=== PATIENT | female | born 1975 | race Caucasian/White ===

== ENCOUNTER 2018-10-10 17:30 | Emergency (ER) | payer MEDICARE, OTHER ==
[2018-10-10] MEDS ORDERED: KETOROLAC TROMETHAMINE 60 MG/2 ML VIAL IM ONE (17:56)
[2018-10-10] MEDS ORDERED: ORPHENADRINE CITRATE 60 MG/2 ML ML IM ONE (17:56)
--- NOTE | 2018-10-10 18:04 | ED Physician Documentation ---
Lower Extremity Problem - HISTORIAN Historian: patient - HPI Stated Complaint: left hip pain Chief Complaint: Hip Pain Additional Information: Intro self as SAILOR. Pt presents to the ED via POV c/o Left hip pain and left lower back pain x 3 weeks. pain is 9/10. stabbing and intermittent radiating to knee. pt had Left hip replacement 08/06/18 and recently was released by her orthopedic. pt denies trauma or injury. pt denies current chest pain, dyspnea, syncope/near syncope, headache, dizziness, visual disturbances, n/v/d, fever/chills, rash, sick contacts, dysuria, trauma. melena or hematochezia, bleeding or easy bruising, change in bowel or bladder function. anxiety or depression. ROS Negative unless otherwise specified. - ROS CONST: no problems - PAST HX Past History: other (bipolar anxiety depression DM 2. ) Surgeries/Procedures: back surgery, knee surgery, cholecystectomy, hysterectomy Allergies/Adverse Reactions: Allergies Allergy/AdvReac Type Severity Reaction Status Date / Time ciprofloxacin [From Cipro] Allergy Mild Verified 10/10/18 18:11 topiramate [From Topamax] Allergy Mild Verified 10/10/18 18:11 Home Medications: Ambulatory Orders Medication Instructions Recorded Bupropion HCl [Bupropion Xl] 300 mg PO DAILY 10/10/18 Buspirone HCl [Buspar] 15 mg PO DAILY 10/10/18 Lisinopril [Zestril] 40 mg PO DAILY 10/10/18 Trazodone HCl [Desyrel] 150 mg PO DAILY 10/10/18 - SOCIAL HX Smoking History: greater than 1 pack/day Alcohol Use: occasionally Drug Use: none - FAMILY HX Family History: none - VITAL SIGNS Vital Signs: Vital Signs Temp Pulse Resp BP Pulse Ox 98.1 F 92 H 16 108/84 95 10/10/18 19:16 10/10/18 19:16 10/10/18 19:16 10/10/18 19:16 10/10/18 19:16 - REVIEWED ASSESSMENTS Nursing Assessment Reviewed: Yes Vitals Reviewed: Yes ED Results Lab/Radiology - Orders Orders: ED Orders Category Date Time Status LT HIP 2VIEW COMPLETE [RAD] Stat Exams 10/10/18 Completed Ketorolac Tromethamine [Toradol] Med 10/10/18 17:56 Discontinued 60 mg IM NOW ONE Orphenadrine Citrate [Norflex] Med 10/10/18 17:56 Discontinued 60 mg IM NOW ONE Lower Extremity Problem - EXAM General Appearance: no distress Hips: right hip: non-tender, normal inspection, normal range of motion, left hip: limited range of motion, nodules, pain, soft tissue tenderness, bilateral hip: no evidence of injury, bone tenderness Legs: bilateral: non-tender, normal inspection, normal range of motion, no evidence of injury Knees: bilateral: non-tender, normal inspection, normal range of motion, no evidence of injury Ankle: bilateral: non-tender, normal inspection, normal range of motion, no evidence of injury Foot: bilateral foot: non-tender, normal inspection, normal range of motion, no evidence of injury Neuro/Tendon: normal sensation, normal motor functions, normal tendon functions, no evidence tendon injury RESPIRATORY: no resp distress, chest non-tender, breath sounds normal JOINT: joints nml, nml ROM, Nml gait/weight bearing, limited ROM (Left due to pain ) VASCULAR: no vascular compromise, pulses full/equal. No: Rahat's sign NEURO/PSYCH: oriented X3, motor nml, sensation nml SKIN: warm/dry, normal color BACK: normal inspection, no CVA tenderness Discharge Clincal Impression: Hip pain, left Sciatica Qualifiers: Laterality: left Qualified Code(s): M54.32 - Sciatica, left side Referrals: Primary Doctor,No [Primary Care Provider] - 2 Days Additional Instructions: Flexeril 10 mg: take 1/2 to ONE tab every 8 hours as needed for muscle spasm ibuprofen 600 mg every 6 hours for pain/inflammation. rest Ice for 20 min intervals. Use tennis ball to massage lower back Follow up with primary care or pain management, or orthopedics for continued pain. Return if worse, increased pain, increased swelling cool, or pale extremity, numbness or tingling, loss of bowel or bladder, chest pain, feeling faint or passing out, shortness of breath or any concern PLEASE UNDERSTAND THAT THIS IS AN EMERGENCY EVALUATION FOR YOUR COMPLAINT AND BY NATURE IS LIMITED AND NOT A SUBSTITUTE FOR ONGOING MEDICAL CARE. EVEN THOUGH TEST RESULTS AND TREATMENT PLAN WERE EXPLAINED THERE MAY BE A NEED FOR ADDITIONAL TESTING TO FULLY DETERMINE THE EXTENT OF YOUR ILLNESS/INJURY/OR CONCERN SO YOU SHOULD CONTACT AND OR ESTABLISH WITH A PRIMARY CARE PROVIDER (OR REFERRAL DOCTOR IF APPLICABLE) FOR AN APPOINTMENT SOON POSSIBLE. Condition: Good Disposition: 01 HOME, SELF-CARE Decision to Admit: NO Date of Decison to Admit: 10/10/18 Decision Time: 19:01
[2018-10-10 19:20] VITALS: BP 108/84
--- NOTE | 2018-10-10 20:13 | Diagnostic Imaging Report ---
MARY ORR [facility] [address] [facility] [address] [address] Report Submission Date: Oct 10, 2018 6:29:08 PM [employer] Patient Study Name: DEMETRIUS GREER Date: Oct 10, 2018 5:56:54 PM [employer] Modality Type: DX Gender: F Description: PELVIS : 71 Institution: [facility] Physician: MARY ORR Left hip, 2 views History: Hip pain Findings: The patient is status post left hip arthroplasty. The prosthesis appears in good position. There is no fracture, dislocation or abnormal bone destruction. Impression: Left hip arthroplasty. Electronically signed on Oct 10, 2018 6:29:08 PM [employer] by: Fredi BUTLER
== END 2018-10-10 19:15 | disposition home or self-care (01) ==
LOC: ED 17:30
DX: M25.552 Pain in left hip (principal); M54.32 Sciatica, left side; Z96.642 Presence of left artificial hip joint
CPT/HCPCS: 73502; 96372; 99283; J1885; J2360

== ENCOUNTER 2019-08-03 23:15 | Emergency (ER) | payer MEDICARE, OTHER ==
--- NOTE | 2019-08-03 23:28 | ED Physician Documentation ---
General Adult - HISTORIAN Historian: patient - HPI Stated Complaint: lower abd pain x 3 weeks Chief Complaint: General Adult Onset: other (weeks) Timing: still present Severity: moderate Further Comments: yes (Pt is a 43 yo female with c/o lower abd pain x 3 weeks.) - ROS CONST: no problems EYES/ENT: none CVS/RESP: none GI/: abdominal pain MS/SKIN/LYMPH: none - PAST HX Past History: other (anxiety/depression, bipolar d/o, ) Surgeries/Procedures: cholecystectomy, hysterectomy, other (back, knee, hip surgery) Allergies/Adverse Reactions: Allergies Allergy/AdvReac Type Severity Reaction Status Date / Time ciprofloxacin [From Cipro] Allergy Mild Verified 08/03/19 23:36 topiramate [From Topamax] Allergy Mild Verified 08/03/19 23:36 Home Medications: Ambulatory Orders Medication Instructions Recorded NK 08/03/19 - SOCIAL HX Smoking History: cigarettes - FAMILY HX Family History: No - VITAL SIGNS Vital Signs: Vital Signs Temp Pulse Resp BP Pulse Ox 108/84 10/10/18 19:16 - REVIEWED ASSESSMENTS Nursing Assessment Reviewed: Yes Vitals Reviewed: Yes Progress - Progress Progress: NS [address] abd/pelvis w contrast: Fatty changes present in the liver. Gallbladder has been removed. The spleen is unremarkable. There is a 2 cm left adrenal nodule. Pancreas is unremarkable. The kidneys enhance normally. The aorta is not dilated. No mesenteric mass is identified. There is a left hip arthroplasty. The uterus has been removed.. There is no compression fracture IMPRESSION: No evidence of acute abdominal or pelvic visceral process Cholecystectomy 2 cm left adrenal nodule. Hysterectomy. Left hip arthroplasty. wbc =14.8 ? enteritis Rx Augmentin (875/125). 1 po q 12 h x 10 days, 1st dose in ER. Push fluids. General Adult Physical Exam - PHYSICAL EXAM GENERAL APPEARANCE: moderate distress EENT: pharynx normal NECK: normal inspection, supple RESPIRATORY: no resp distress, chest non-tender, breath sounds normal CVS: reg rate & rhythm, heart sounds normal ABDOMEN: soft, tenderness (mid abd tenderness, mild-moderate), decreased BS BACK: normal inspection, no CVA tenderness SKIN: warm/dry, normal color EXTREMITIES: non-tender, normal range of motion, no evidence of injury NEURO: oriented X3, motor nml, sensation nml Discharge Clincal Impression: abd pain, possible gastritis/enteritis Referrals: Primary Doctor,No [Primary Care Provider] - 2 Days Condition: Stable Disposition: 01 HOME, SELF-CARE Decision to Admit: NO Decision Time: 02:06
[2019-08-03] MEDS: 0.9 % SODIUM CHLORIDE 1,000 ML IV ONE (23:50)
[2019-08-04 00:05] LABS: BASOPHILS % 0.9 % (0.0-1.5); NEUTROPHILS # 8.4 # k/uL (1.4-7.7)
[2019-08-04 00:08] LABS: eGFR (Non-African) > 60
--- NOTE | 2019-08-04 01:20 | Diagnostic Imaging Report ---
MENDOZA ENCINAS [facility] [address] [facility] [address] [place], [place]. [address] Report Submission Date: Aug 04, 2019 1:16:45 AM CDT Patient Study Name: DEMETRIUS GREER Date: Aug 04, 2019 12:51:07 AM CDT Modality Type: CT Gender: F Description: CT ABD/PEL W/ : 71 Institution: [facility] Physician: MENDOZA ENCINAS CT abdomen and pelvis with contrast Date of study: August 04, 2019 CLINICAL HISTORY: abd pain, no bm x days (Hx) / abd pain, no bm x days (DICOM Hx) TECHNIQUE: 5 mm contiguous axial images of the abdomen and pelvis with IV contrast. With; omnipaque 350, 100cc FINDINGS: Fatty changes present in the liver. Gallbladder has been removed. The spleen is unremarkable. There is a 2 cm left adrenal nodule. Pancreas is unremarkable. The kidneys enhance normally. The aorta is not dilated. No mesenteric mass is identified. There is a left hip arthroplasty. The uterus has been removed.. There is no compression fracture IMPRESSION: No evidence of acute abdominal or pelvic visceral process Cholecystectomy 2 cm left adrenal nodule. Hysterectomy. Left hip arthroplasty Electronically signed on Aug 04, 2019 1:16:45 AM CDT by: Bryant BUTLER
[2019-08-04] MEDS: AMOXICILLIN/POT 875/125 1 EACH PO ONE (02:12)
[2019-08-04 02:32] VITALS: BP 140/88
[2019-08-04 14:42] LABS: APPEARANCE,URINE CLEAR (CLEAR); COLOR,URINE YELLOW (YELLOW); OCCULT BLOOD,URINE 1+ (NEGATIVE); UROBILINOGEN URINE 0.2 Eu (0.2-1.0)
== END 2019-08-04 02:15 | disposition home or self-care (01) ==
LOC: ED 23:15
DX: R10.30 Lower abdominal pain, unspecified (principal)
CPT/HCPCS: 74177; 80053; 81002; 83690; 85025; 96360; 99284; J7030; Q9967; S1016